=== PATIENT | male | born 2000 | race Caucasian/White ===

== ENCOUNTER 2019-04-24 16:02 | Emergency (ER) | payer OTHER ==
[~2019-04-24] VITALS: Ht 193 cm; Wt 127.0 kg
[2019-04-24 16:22] VITALS: BP_SYST 141
--- NOTE | 2019-04-24 16:27 | NUR ---
Patient triaged and placed in waiting room. VSS and patient appears in no acute distress at this time. Accompanied by FATHER, awaiting available bed, and MD notified of need for MSE.
--- NOTE | 2019-04-24 17:17 | NUR ---
Patient to ER bed 04 to gown for evaluation. Side rails up. Report given to BASILIO Domingo
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
--- NOTE | 2019-04-24 17:55 | NUR ---
ER Dr. Lazaro at bedside examining patient.
[2019-04-24 19:08] VITALS: BP_SYST 141
--- NOTE | 2019-04-24 19:08 | NUR ---
Patient given written and verbal discharge instructions and verbalizes understanding. ER MD discussed with patient the results and treatment provided. Patient in stable condition. ID arm band removed. Rx of Robaxin and Ibuprofen given. Patient educated on pain management and to follow up with PMD. Pain Scale 0/10. Opportunity for questions provided and answered. Medication side effect fact sheet provided.
== END 2019-04-24 19:08 | disposition home or self-care (01) ==
LOC: SED 16:02
DX: S13.4XXA Sprain of ligaments of cervical spine, initial encounter (principal); S09.90XA Unspecified injury of head, initial encounter; V49.49XA Driver injured in collision with other motor vehicles in traffic accident, initial encounter; Y93.89 Activity, other specified; Y92.411 Interstate highway as the place of occurrence of the external cause; Y99.8 Other external cause status
CPT/HCPCS: 70450-TC; 72100-TC; 72125-TC; 99284